=== PATIENT | male | born 1975 | race Caucasian/White ===

== ENCOUNTER 2017-10-18 19:50 | Observation (INO) | payer OTHER ==
[2017-10-18] MEDS ORDERED: NA CHLORIDE 0.9% 1,000 ML ONE ×2 (20:45→21:54)
[2017-10-18 20:49] LABS: Urine Blood NEGATIVE (NEG); Urine Glucose NEGATIVE (NEG); Urine Protein 1+ (NEG)
[2017-10-18 20:51] LABS: Absolute Monocytes 1.2 K/uL (0.1-1.3); Absolute Neutrophil 9.9 K/uL (1.8-8.0); Basophils % 0.4 % (0-1.3); Eosinophils % 1.4 % (0-4.4); Hematocrit 45.2 % (39.6-49.0); Lymphocytes % 15.1 % (15.3-44.8); MCH 31.6 pg (27.0-35.0); MCV 93.3 fL (80-100); Monocytes % 8.7 % (3.3-12.3); RBC Red Blood Cell Count 4.85 M/uL (4.33-5.43)
[2017-10-18] MEDS ORDERED: NA CHLORIDE 0.9% 2,000 ML ONE (20:54)
[2017-10-18 21:10] LABS: Albumin 4.4 g/dL (3.4-5.0); Bilirubin Direct 0.3 mg/dL (0-0.2); Bilirubin Total 1.4 mg/dL (0.2-1.0); CKMB Creatine Kinase MB 4.9 ng/mL (0.3-3.6); Magnesium 2.3 mg/dL (1.8-2.4); Potassium 3.2 mmol/L (3.5-5.1); Protein, Total 8.7 g/dL (6.4-8.2)
[2017-10-18 21:13] LABS: Protime INR 1.02
--- NOTE | 2017-10-18 21:45 | ER ---
Nurse's Notes [facility] Name: Dameon Juan Age: 42 yrs Sex: Male : 1975 Arrival Date: 10/18/2017 Time: 19:54 Bed 6 Private MD: Diagnosis: Dehydration;Acute kidney failure;Hypokalemia Presentation: 10/18 20:22 Presenting complaint: Patient states: Has been fishing since 0600 today, "I feel lp1 dehydrated and my kidneys hurt"; States getting sunburned and feeling short of breath, ears clogged, pain to right and left flanks. Transition of care: patient was not received from another setting of care. Onset of symptoms was October 18, 2017. Risk Assessment: Do you want to hurt yourself or someone else? Patient reports no desire to harm self or others. Initial Sepsis Screen: Does the patient meet any 2 criteria? No. Patient's initial sepsis screen is negative. Does the patient have a suspected source of infection? No. Patient's initial sepsis screen is negative. Care prior to arrival: None. 20:22 Method Of Arrival: Ambulatory lp1 20:22 Acuity: MECHE 3 lp1 Historical: - Allergies: 20:26 No Known Allergies; lp1 - Home Meds: 20:26 Amoxicillin Oral [Active]; Azithromycin Oral [Active]; Protonix Oral [Active]; BP med lp1 [Active]; - PMHx: 20:26 Hypertension; lp1 - PSHx: 20:26 Appendectomy; lp1 - Immunization history:: Adult Immunizations up to date. - Social history:: Smoking status: Patient uses tobacco products, smokes one pack cigarettes per day. - Ebola Screening: : No symptoms or risks identified at this time. Screenin:28 Abuse screen: Denies threats or abuse. Denies injuries from another. Nutritional lp1 screening: No deficits noted. Tuberculosis screening: No symptoms or risk factors identified. Fall Risk None identified. Assessment: 20:27 General: Appears uncomfortable, Behavior is calm, cooperative, appropriate for age. lp1 Pain: Complains of pain in left low back and right low back Pain currently is 8 out of 10 on a pain scale. Quality of pain is described as sharp. Neuro: Level of Consciousness is awake, alert, obeys commands, Oriented to person, place, time, situation, Gait is steady. Cardiovascular: Capillary refill < 3 seconds in bilateral fingers Patient's skin is warm and dry. Respiratory: Reports shortness of breath Airway is patent Trachea midline Respiratory effort is even, Respiratory pattern is regular, symmetrical, Breath sounds are clear bilaterally. GI: No signs and/or symptoms were reported involving the gastrointestinal system. : Reports pain in right in left flank(s). EENT: Reports "clogged ears". Derm: Skin is pink, warm \\T\\ dry. Musculoskeletal: Circulation, motion, and sensation intact. 21:30 Reassessment: Patient appears in no apparent distress at this time. Patient and/or lp1 family updated on plan of care and expected duration. Pain level reassessed. Patient refusing CT, Provider notified. 21:43 Reassessment: Dr. Sibley at bedside to discuss results with patient and . lp1 22:45 Reassessment: Patient appears in no apparent distress at this time. Patient and/or lp1 family updated on plan of care and expected duration. Pain level reassessed. Patient is alert, oriented x 3, equal unlabored respirations, skin warm/dry/pink. 23:43 Reassessment: Patient appears in no apparent distress at this time. No changes from lp1 previously documented assessment. Vital Signs: 20:24 BP 123 / 83; Pulse 109; Resp 22; Temp 98.8(O); Pulse Ox 98% on R/A; Weight 104.33 kg; lp1 Height 6 ft. 0 in. (182.88 cm); 21:30 BP 117 / 91; Pulse 95; Resp 20; Pulse Ox 96% on R/A; lp1 22:30 BP 126 / 79; Pulse 92; Resp 20; Pulse Ox 97% on R/A; lp1 23:00 BP 114 / 69; Pulse 102; Resp 20; Pulse Ox 96% on R/A; lp1 20:24 Body Mass Index 31.19 (104.33 kg, 182.88 cm) lp1 ED Course: 19:54 Patient arrived in ED. es 20:15 Christianne Carter, RN is Primary Nurse. lp1 20:24 Triage completed. lp1 20:24 Arm band placed on left wrist. lp1 20:28 Jessee Sibley MD is Attending Physician. [facility] 20:29 Patient has correct armband on for positive identification. quality assurance monitor chassis on. Pulse lp1 ox on. NIBP on. 20:30 Initial lab(s) drawn, by me, sent to lab. Inserted saline lock: 20 gauge in right ks6 antecubital area, using aseptic technique. Blood collected. 21:44 Rachel Vela MD is Hospitalizing Provider. kevin 21:49 CT completed. Patient moved to CT via wheelchair. Patient moved back from CT. cw1 22:04 CT Stone Protocol In Process Unspecified. EDMS 22:10 X-ray completed. Portable x-ray completed in exam room. Patient tolerated procedure la2 well. 23:33 No provider procedures requiring assistance completed. Patient admitted, IV remains in lp1 place. Administered Medications: 20:48 Drug: NS 0.9% 1000 ml Route: IV; Rate: 1 bolus; Site: right forearm; lp1 22:00 Follow up: IV Status: Completed infusion; IV Intake: 1000ml lp1 20:54 Drug: NS 0.9% 1000 ml Route: IV; Rate: 1 bolus; Site: right forearm; lp1 21:45 Follow up: IV Status: Completed infusion; IV Intake: 1000ml lp1 21:47 CANCELLED (Duplicate Order): NS 0.9% 1000 ml IV at 1 bolus Per protocol; 1000 mL bolus lp1 22:00 Drug: NS 0.9% 1000 ml Route: IV; Rate: 1 bolus; Site: right forearm; lp1 23:29 Follow up: IV Status: Completed infusion; IV Intake: 1000ml lp1 23:28 Drug: NS 0.9% 1000 ml Route: IV; Rate: 150 ml/hr; Site: right forearm; lp1 23:29 Follow up: IV Status: Infusion continued upon admission lp1 23:28 Drug: Potassium Effervescent Tablet 25 mEq Route: PO; lp1 23:35 Follow up: Response: No adverse reaction lp1 Intake: 21:45 IV: 1000ml; Total: 1000ml. lp1 22:00 IV: 1000ml; Total: 2000ml. lp1 23:29 IV: 1000ml; Total: 3000ml. lp1 Outcome: 21:45 Decision to Hospitalize by Provider. kevin 23:34 Condition: stable lp1 23:34 Instructed on the need for admit. 23:34 Admitted to Tele via wheelchair, room 404, with chart, Report called to ALEX Motta lp1 23:45 Patient left the ED. lp1 Signatures: Dispatcher [employer] EDJessee Kraft MD MD cha Salyer, Edna es Woodley, Crystal cw1 Christianne Carter, ALEX RN lp1 Sophia Mathew Kyle ks6 Corrections: (The following items were deleted from the chart) 20:48 20:46 Inserted saline lock: 20 gauge in right antecubital area, using aseptic ks6 technique. Blood collected. [facility] 20:48 20:46 Initial lab(s) drawn, by al, sent to lab. [facility] ks6
--- NOTE | 2017-10-18 21:45 | EDPHYS ---
Physician Documentation [facility] Name: Dameon Juan Age: 42 yrs Sex: Male : 1975 Arrival Date: 10/18/2017 Time: 19:54 Bed 6 Private MD: ED Physician Jessee Sibley HPI: 10/18 21:30 This 42 yrs old Male presents to ER via Ambulatory with complaints of kevin cramping,kidney pain,sob. 21:30 This 42 yrs old Male presents to ER via Ambulatory with complaints of kevin cramping,kidney pain,sob. 21:30 This 42 yrs old Male presents to ER via Ambulatory with complaints of kevin cramping,kidney pain,sob. Historical: - Allergies: 20:26 No Known Allergies; lp1 - Home Meds: 20:26 Amoxicillin Oral [Active]; Azithromycin Oral [Active]; Protonix Oral [Active]; BP med lp1 [Active]; - PMHx: 20:26 Hypertension; lp1 - PSHx: 20:26 Appendectomy; lp1 - Immunization history:: Adult Immunizations up to date. - Social history:: Smoking status: Patient uses tobacco products, smokes one pack cigarettes per day. - Ebola Screening: : No symptoms or risks identified at this time. ROS: 21:31 Constitutional: Negative for fever, chills, and weight loss, Eyes: Negative for injury, kevin pain, redness, and discharge, ENT: Negative for injury, pain, and discharge, Neck: Negative for injury, pain, and swelling, Respiratory: Negative for shortness of breath, cough, wheezing, and pleuritic chest pain, Abdomen/GI: Negative for abdominal pain, nausea, vomiting, diarrhea, and constipation, : Negative for injury, bleeding, discharge, and swelling, MS/Extremity: Negative for injury and deformity, Skin: Negative for injury, rash, and discoloration, Neuro: Negative for headache, weakness, numbness, tingling, and seizure, Psych: Negative for depression, anxiety, suicide ideation, homicidal ideation, and hallucinations, Allergy/Immunology: Negative for hives, rash, and allergies, Endocrine: Negative for neck swelling, polydipsia, polyuria, polyphagia, and marked weight changes, Hematologic/Lymphatic: Negative for swollen nodes, abnormal bleeding, and unusual bruising. 21:31 Cardiovascular: Positive for palpitations. 21:31 Back: Positive for pain at rest, flank pain, bilaterally. Exam: 21:31 Constitutional: This is a well developed, well nourished patient who is awake, alert, kevin and in no acute distress. Head/Face: Normocephalic, atraumatic. Eyes: Pupils equal round and reactive to light, extra-ocular motions intact. Lids and lashes normal. Conjunctiva and sclera are non-icteric and not injected. Cornea within normal limits. Periorbital areas with no swelling, redness, or edema. ENT: Nares patent. No nasal discharge, no septal abnormalities noted. Tympanic membranes are normal and external auditory canals are clear. Oropharynx with no redness, swelling, or masses, exudates, or evidence of obstruction, uvula midline. Mucous membranes moist. Neck: Trachea midline, no thyromegaly or masses palpated, and no cervical lymphadenopathy. Supple, full range of motion without nuchal rigidity, or vertebral point tenderness. No Meningismus. Chest/axilla: Normal chest wall appearance and motion. Nontender with no deformity. No lesions are appreciated. Respiratory: Lungs have equal breath sounds bilaterally, clear to auscultation and percussion. No rales, rhonchi or wheezes noted. No increased work of breathing, no retractions or nasal flaring. Abdomen/GI: Soft, non-tender, with normal bowel sounds. No distension or tympany. No guarding or rebound. No evidence of tenderness throughout. Back: No spinal tenderness. No costovertebral tenderness. Full range of motion. Male : Normal genitalia with no discharge or lesions. Skin: Warm, dry with normal turgor. Normal color with no rashes, no lesions, and no evidence of cellulitis. MS/ Extremity: Pulses equal, no cyanosis. Neurovascular intact. Full, normal range of motion. Neuro: Awake and alert, GCS 15, oriented to person, place, time, and situation. Cranial nerves II-XII grossly intact. Motor strength 5/5 in all extremities. Sensory grossly intact. Cerebellar exam normal. Normal gait. Psych: Awake, alert, with orientation to person, place and time. Behavior, mood, and affect are within normal limits. 21:31 Cardiovascular: Rate: tachycardic, Rhythm: regular, Pulses: Pulses are 4+ in bilateral radial, brachial, femoral, popliteal, posterior tibial and and dorsalis pedis arteries.. Heart sounds: normal, JVD: is not appreciated. Vital Signs: 20:24 BP 123 / 83; Pulse 109; Resp 22; Temp 98.8(O); Pulse Ox 98% on R/A; Weight 104.33 kg; lp1 Height 6 ft. 0 in. (182.88 cm); 21:30 BP 117 / 91; Pulse 95; Resp 20; Pulse Ox 96% on R/A; lp1 22:30 BP 126 / 79; Pulse 92; Resp 20; Pulse Ox 97% on R/A; lp1 23:00 BP 114 / 69; Pulse 102; Resp 20; Pulse Ox 96% on R/A; lp1 20:24 Body Mass Index 31.19 (104.33 kg, 182.88 cm) lp1 MDM: 20:28 Patient medically screened. [facility] 21:43 Data reviewed: vital signs, nurses notes, lab test result(s), EKG, radiologic studies, [facility] CT scan, plain films. 10/18 20:33 Order name: Urine Dipstick--Ancillary (enter results) 10/18 20:34 Order name: Basic Metabolic Panel [facility] 10/18 20:34 Order name: CBC with Diff; Complete Time: 21:27 [facility] 10/18 20:34 Order name: Ckmb [facility] 10/18 20:34 Order name: CPK [facility] 10/18 20:34 Order name: LFT's [facility] 10/18 20:34 Order name: Magnesium; Complete Time: 21:27 [facility] 10/18 20:34 Order name: NT PRO-BNP [facility] 10/18 20:34 Order name: PT-INR; Complete Time: 21:27 [facility] 10/18 20:34 Order name: Ptt, Activated; Complete Time: 21:27 [facility] 10/18 20:34 Order name: Troponin (emerg Dept Use Only); Complete Time: 21:27 [facility] 10/18 20:34 Order name: Lipase; Complete Time: 21:27 [facility] 10/18 20:34 Order name: Urine Culture [facility] 10/18 20:35 Order name: Basic Metabolic Panel; Complete Time: 21:27 EDMS 10/18 20:34 Order name: XRAY Chest (1 view) [facility] 10/18 20:34 Order name: EKG; Complete Time: 20:35 [facility] 10/18 20:34 Order name: Cardiac monitoring; Complete Time: 20:35 [facility] 10/18 20:34 Order name: EKG - Nurse/Tech; Complete Time: 20:44 [facility] 10/18 20:35 Order name: CKMB Creatine Kinase MB; Complete Time: 21:27 [facility] 10/18 20:35 Order name: Creatine Phosphokinase; Complete Time: 21:27 [facility] 10/18 20:35 Order name: Liver (Hepatic) Function; Complete Time: 21:27 [facility] 10/18 20:35 Order name: NT PRO-BNP; Complete Time: 21:27 [facility] 10/18 21:29 Order name: CT Stone Protocol [facility] 10/18 22:50 Order name: RAD [facility] 10/18 20:34 Order name: IV Saline Lock; Complete Time: 20:35 [facility] 10/18 20:34 Order name: Labs collected and sent; Complete Time: 20:35 [facility] 10/18 20:34 Order name: O2 Per Protocol; Complete Time: 20:35 [facility] 10/18 20:34 Order name: O2 Sat Monitoring; Complete Time: 20:44 [facility] 10/18 20:34 Order name: Urine Dipstick-Ancillary (obtain specimen); Complete Time: 20:35 [facility] Administered Medications: 20:48 Drug: NS 0.9% 1000 ml Route: IV; Rate: 1 bolus; Site: right forearm; lp1 22:00 Follow up: IV Status: Completed infusion; IV Intake: 1000ml lp1 20:54 Drug: NS 0.9% 1000 ml Route: IV; Rate: 1 bolus; Site: right forearm; lp1 21:45 Follow up: IV Status: Completed infusion; IV Intake: 1000ml lp1 21:47 CANCELLED (Duplicate Order): NS 0.9% 1000 ml IV at 1 bolus Per protocol; 1000 mL bolus lp1 22:00 Drug: NS 0.9% 1000 ml Route: IV; Rate: 1 bolus; Site: right forearm; lp1 23:29 Follow up: IV Status: Completed infusion; IV Intake: 1000ml lp1 23:28 Drug: NS 0.9% 1000 ml Route: IV; Rate: 150 ml/hr; Site: right forearm; lp1 23:29 Follow up: IV Status: Infusion continued upon admission lp1 23:28 Drug: Potassium Effervescent Tablet 25 mEq Route: PO; lp1 23:35 Follow up: Response: No adverse reaction lp1 Disposition: 10/18/17 21:45 Hospitalization ordered by Rachel Vela for Observation. Preliminary diagnosis are Dehydration, Acute kidney failure, Hypokalemia. - Bed requested for Telemetry/MedSurg (observation). - Status is Observation. lp1 - Condition is Fair. - Problem is new. - Symptoms have improved. UTI on Admission? No Signatures: Dispatcher [employer] EDJessee Kraft MD MD cha Pena, Laura, RN RN lp1 Yennifer Curtis Corrections: (The following items were deleted from the chart) 21:47 21:30 NS 0.9% 1000 ml IV at 1 bolus Per protocol; 1000 mL bolus ordered. kevin [facility] 21:52 21:45 Hospitalization Ordered by Rachel Vela MD for Observation. Preliminary eb diagnosis is Dehydration; Acute kidney failure; Hypokalemia. Bed requested for Telemetry/MedSurg (observation). Status is Observation. Condition is Fair. Problem is new. Symptoms have improved. UTI on Admission? No. kevin 23:01 21:52 10/18/2017 21:45 Hospitalization Ordered by Rachel Vela MD for Observation. eb Preliminary diagnosis is Dehydration; Acute kidney failure; Hypokalemia. Bed requested for Telemetry/MedSurg (observation). Status is Observation. Condition is Fair. Problem is new. Symptoms have improved. UTI on Admission? No. eb 23:45 23:01 10/18/2017 21:45 Hospitalization Ordered by Rachel Vela MD for Observation. lp1 Preliminary diagnosis is Dehydration; Acute kidney failure; Hypokalemia. Bed requested for Telemetry/MedSurg (observation). Status is Observation. Condition is Fair. Problem is new. Symptoms have improved. UTI on Admission? No. eb
[2017-10-18] MEDS ORDERED: POTASSIUM 25 MEQ EFFERV TAB ONE (21:54)
--- NOTE | 2017-10-18 22:12 | RAD REPORT ---
EXAM DESCRIPTION: CT - Stone Protocol - 10/18/2017 10:04 pm CLINICAL HISTORY: Bilateral flank pain COMPARISON: None. TECHNIQUE: Axial 5 mm thick images were obtained without oral or IV contrast. The [id number] span s the entirety of the system including uppermost abdomen and lung bases. All CT scans are performed using dose optimization technique as appropriate and may include automated exposure control or mA/KV adjustment according to patient size. FINDINGS: No hydronephrosis is present and no obstructing ureteral calculi. No suspicious renal mass es. Isodense masses and pyelonephritis are not excluded on a stone protocol CT scan. No urinary bladd er suspicious finding. Imaged portions of the liver, spleen and pancreas show no suspicious findings on non-contrast imaging . No gallbladder or biliary tree abnormality identified. No significant adrenal finding. No suspicious bowel findings. No hernia, mass or bulky lymphadenopathy noted. No free air, free fluid or inflammatory stranding. No significant bony abnormality. IMPRESSION: No hydronephrosis, obstructing calculus or acute finding. Isodense masses and pyelonephritis are not excluded on stone protocol technique. No acute GI finding. No suspicious findings noted.
--- NOTE | 2017-10-18 22:28 | P.HP ---
Certification for Inpatient Patient admitted to: Observation With expected LOS: <2 Midnights Practitioner: I am a practitioner with admitting privileges, knowledge of patient current condition, hospital course, and medical plan of care. Services: Services provided to patient in accordance with Admission requirements found in Title 42 Section 412.3 of the Code of Federal Regulations Patient History Date of Service: 10/18/17 Reason for admission: acute renal injury History of Present Illness: Mr Juan is a 42 years old male with history of HTN, tobacco abuse, who was fishing today since 6:00 AM. He was under the sun, and he recognized not keep up with his water intake. This afternoon, around 1800, he start feeling nausea, dizziness, and severe weakness. he denied vomiting or diarrhea, no chest pain or SOB. He is also complaining of lower back pain. Lab work remarkable for elevated WBC count 13K, elevated creatinine 2.3, hypokalemia 3.2. UA unremarkable. CT abd/pelvis pending report, but not obvious hydronephrosis or stones. Home medications list reviewed: Yes - Past Medical/Surgical History -: HTN -: tobacco abuse -: appendectomy - Family History Family History: Reviewed- Non-Contributory - Social History Smoking Status: Current every day smoker Counseled patient to stop smoking for: less than 10 minutes Alcohol use: Yes CD- Drugs: No Place of Residence: Home Review of Systems 10-point ROS is otherwise unremarkable Physical Examination - Physical Exam General: Alert, In no apparent distress HEENT: Atraumatic, PERRLA, Mucous membr. moist/pink, EOMI, Sclerae nonicteric Neck: Supple, 2+ carotid pulse no bruit, No LAD, Without JVD or thyroid abnormality Respiratory: Clear to auscultation bilaterally, Normal air movement Cardiovascular: Regular rate/rhythm, Normal S1 S2 Gastrointestinal: Normal bowel sounds, No tenderness Musculoskeletal: No tenderness Integumentary: No rashes Neurological: Normal speech, Normal strength at 5/5 x4 extr, Normal tone, Normal affect Lymphatics: No axilla or inguinal lymphadenopathy - Studies Laboratory Data (last 24 hrs) 10/18/17 20:30: PT 12.0, INR 1.02, APTT 27.8 10/18/17 20:30: WBC 13.4 H, Hgb 15.3, Hct 45.2, Plt Count 251 10/18/17 20:30: Sodium 136, Potassium 3.2 L, BUN 19 H, Creatinine 2.30 H, Glucose 118 H, Magnesium 2.3, Total Bilirubin 1.4 H, AST 39 H, ALT 29, Alkaline Phosphatase 74, Lipase 227 Assessment and Plan - Problems (Diagnosis) (1) Acute renal injury Current Visit: Yes Status: Acute (2) Dehydration Current Visit: Yes Status: Acute (3) Hypokalemia Current Visit: Yes Status: Acute - Plan The patient will be admitted to the hospital due to acute renal injury secondary to volume depletion. Will continue with aggressive IV NS infusion. Replace electrolyte by protocol. Re-check lab work in AM. - Advance Directives Does patient have a Living Will: No Does patient have a Durable POA for Healthcare: No - Code Status/Comfort Care Code Status Assessed: Yes Code Status: Full Code
--- NOTE | 2017-10-18 22:50 | RAD REPORT ---
EXAM DESCRIPTION: RAD - Chest Single View - 10/18/2017 10:21 pm CLINICAL HISTORY: Cough, shortness of breath COMPARISON: None. TECHNIQUE: AP portable chest image was obtained 2046 hours . FINDINGS: Lungs are clear. Heart and vasculature are normal. No measurable pleural effusion and no p neumothorax. No gross bony abnormality seen. No acute aortic findings suspected. IMPRESSION: No acute cardiopulmonary process.
[2017-10-18] MEDS ORDERED: ACETAMINOPHEN 500 MG TAB PO PRN (23:33)
[2017-10-18] MEDS ORDERED: ONDANSETRON 4 MG/2 ML VIAL IV PRN (23:33)
[2017-10-18] MEDS ORDERED: TRAMADOL HCL 50 MG TAB PO PRN (23:33)
[2017-10-19] MEDS: NA CHLORIDE 0.9% 1,000 ML IV SCH ×2 (00:42→06:12)
[2017-10-19 01:31] VITALS: BMI 32.1
--- NOTE | 2017-10-19 06:20 | EKG ---
Test Date: 2017-10-18 Test Time: 20:41:21 [employer] Analyst: JANEE MEASUREMENT RESULTS: Intervals: Rate: 102 OK: 152 QRSD: 88 QT: 350 QTc: 456 Wilson: P: 54 OK: 152 QRS: 22 T: 47 INTERPRETIVE STATEMENTS: Sinus tachycardia with occasional premature ventricular complexes Otherwise normal ECG No previous ECG available for comparison Electronically Signed On 10-19-17 06:19:35 CDT by Caleb Cardenas
[2017-10-19 06:22] VITALS: O2SAT 95
[2017-10-19 07:22] LABS: Absolute Lymphocytes (CBC) 2.9 K/uL (0.7-4.9); Absolute Monocytes 0.7 K/uL (0.1-1.3); Absolute Neutrophil 3.2 K/uL (1.8-8.0); Basophils % 0.4 % (0-1.3); Eosinophils % 3.1 % (0-4.4); Hematocrit 40.2 % (39.6-49.0); Lymphocytes % 41.7 % (15.3-44.8); MCH 32.6 pg (27.0-35.0); MPV 8.2 fL (7.6-11.3); Monocytes % 9.5 % (3.3-12.3); RBC Red Blood Cell Count 4.28 M/uL (4.33-5.43)
[2017-10-19 07:35] LABS: Potassium 3.4 mmol/L (3.5-5.1)
[2017-10-19 08:32] VITALS: BP 116/71; TEMP 98.5
[2017-10-19] MEDS ORDERED: POTASSIUM 25 MEQ EFFERV TAB PO ONE (10:00)
[2017-10-19] MEDS ORDERED: PANTOPRAZOLE 40MG TABLET PO SCH (11:00)
[2017-10-19] MEDS ORDERED: HOME MED 1 EA UNK (Dextroamphetamine/Amphetamine [Adderall 30 Mg Tablet] 30 MG) PO SCH (14:00)
[2017-10-19] MEDS ORDERED: LOSARTAN POTASSIUM 50 MG TABLET PO SCH (21:00)
--- NOTE | 2017-10-20 02:00 | DS ---
Date of Discharge: 10/19/2017 Admitting Diagnoses: 1.Acute kidney injury. 2.Dehydration. 3.Hypokalemia. Discharge Diagnoses: 1.Acute kidney injury, resolved. 2.Hypokalemia, corrected. 3.Dehydration, resolved. 4.Essential hypertension. 5.Nicotine dependence with cigarette smoking. 6.Hypocalcemia. Hospital Course: The patient is a 42-year-old male came in with acute kidney injury after acute dehy dration while being out all day fishing in the heat. The patient was found to have elevated creatini ne of 2.3. He was started on IV fluids. His creatinine normalized. His potassium was low at 3.2, w hich was replaced. The patient did have some mild hypocalcemia at 7.8, his white count normalized. His urine was negative. CT scan of the abdomen was done, which did not show any acute changes. Ches t x-ray did not show any acute changes either. The patient was then cleared for discharge. He was a mbulating well and was able to tolerate food and was encouraged to keep himself hydrated and keep out of the heat. The patient was then cleared for discharge and sent home in a stable condition. Activity: As tolerated. Medications: As per medication reconciliation list. Followup: Follow up with primary care physician in 2-3 days. Return to ER for worsening condition. Diet: Heart healthy. Physical Examination: General: Awake, alert, oriented x3. No acute distress. CV: S1, S2. No murmurs. Respiratory: Moving air well bilaterally. Abdomen: Abdomen is soft, nontender, and nondistended. Positive bowel sounds. Extremities: No clubbing, cyanosis, or edema. Neurologic: Nonfocal. SA/MODL Voice ID: [id number] Report ID: [id number]
== END 2017-10-19 11:40 | disposition home or self-care (01) ==
LOC: ER 19:50 → ERHOLD 21:47 → 4TH 23:03
PROVIDERS: ADMIT Internal Medicine; ATTEND Internal Medicine
DX: N17.9 Acute kidney failure, unspecified (principal); E87.6 Hypokalemia; E86.0 Dehydration; I10 Essential (primary) hypertension; F17.210 Nicotine dependence, cigarettes, uncomplicated; E83.51 Hypocalcemia
CPT/HCPCS: 36415; 71045; 74176; 76377; 80048; 80076; 81003; 82550; 82553; 83690; 83735; 83880; 84484; 85025; 85610; 85730; 87086; 87088; 93005; 96360; 96361; 99285; G0378; J7030